=== PATIENT | male | born 1945 | race Caucasian/White ===

== ENCOUNTER 2018-03-18 18:58 | Inpatient (IN) | payer MEDICARE, OTHER ==
[~2018-03-18] VITALS: Ht 172.7 cm; Wt 70.0 kg
[2018-03-18] MEDS ORDERED: dexamethasone sod phosphate 10mg/ml inj IV STA (19:32)
[2018-03-18] MEDS ORDERED: normal saline 1000ML IV soln IVB ONE (19:35)
[2018-03-18] MEDS ORDERED: ipratropium/albuterol 3ml nebule NEB ONE (19:35)
[2018-03-18] MEDS ORDERED: ondansetron/PF 4mg/2ml inj IV ONE (19:35)
[2018-03-18 19:57] LABS: BASOPHILS % (AUTO) 0.3 % (0-1); EOSINOPHILS # (AUTO) 0.1 X10'3 (0-0.9); EOSINOPHILS % (AUTO) 0.8 % (0-6); HEMATOCRIT 43.7 % (42.0-52.0); HEMOGLOBIN 15.3 g/dl (14.0-17.9); LYMPHOCYTES % (AUTO) 13.8 % (21-51); MEAN CORPUSCULAR HEMOGLOBIN 32.1 PG (27.0-31.0); MEAN CORPUSCULAR VOLUME 91.9 FL (78-98); MEAN PLATELET VOLUME 7.9 FL (7.4-10.4); MONOCYTES # (AUTO) 0.2 X10'3 (0-0.9); MONOCYTES % (AUTO) 3.6 % (2-12); NEUTROPHILS # (AUTO) 5.6 X10'3 (1.8-7.7); NEUTROPHILS % (AUTO) 81.5 % (42-75); PLATELET COUNT 188 X10'3 (140-440); RED BLOOD COUNT 4.76 X10'6 (4.70-6.10); RED CELL DISTRIBUTION WIDTH 14.1 % (11.5-14.5); WHITE BLOOD COUNT 6.9 X10'3 (4.5-11.0)
[2018-03-18 20:06] LABS: ALANINE AMINOTRANSFERASE 32 U/L (12-78); ALBUMIN 3.8 G/DL (3.4-5.0); ALBUMIN/GLOBULIN RATIO 1.1 (1.1-1.5); ALKALINE PHOSPHATASE 90 IU/L (46-116); ANION GAP 10 (8-16); ASPARTATE AMINO TRANSFERASE 21 U/L (10-37); BILIRUBIN,TOTAL 0.6 MG/DL (0.1-1.0); BLOOD UREA NITROGEN 22 MG/DL (7-18); BUN/CREATININE RATIO 23.2 (5.4-32.0); CALCIUM 9.2 MG/DL (8.5-10.1); CHLORIDE 104 MMOL/L (99-107); CREATININE 0.95 MG/DL (0.60-1.10); GLUCOSE 190 MG/DL (70-104); POTASSIUM 4.1 MMOL/L (3.5-5.1); SODIUM 140 MMOL/L (135-145); TOTAL CARBON DIOXIDE 26.3 MMOL/L (24-32); TOTAL PROTEIN 7.4 G/DL (6.4-8.2); eGFR 78 ML/MIN
[2018-03-18 20:17] LABS: LIPASE 127 U/L (73-393)
[2018-03-18] MEDS: morphine 4 MG/ML inj SYRINge IV PRN (20:18)
[2018-03-18 21:12] LABS: CLARITY,URINE CLEAR (Clear); COLOR,URINE YELLOW (Yellow); GLUCOSE, URINE 100 mg/dl (Neg); KETONES,URINE >=80 mg/dl (Neg); LEUKOCYTE ESTERASE ,URINE NEGATIVE (Neg); NITRITES, URINE NEGATIVE (Neg); OCCULT BLOOD,URINE NEGATIVE (Neg); PROTEIN,URINE TRACE mg/dl (Neg); UROBILINOGEN,URINE 0.2 E.U/dL (0.2-1.0)
[2018-03-18 21:18] LABS: UA COLLECTION TYPE CLN CATCH MIDSTREAM
[2018-03-18 21:19] LABS: BACTERIA,URINE FEW /HPF (Neg); MUCUS STRANDS FEW /LPF (Neg); RBC,URINE 0-2 /HPF (0-2); SQUAMOUS EPITHELIAL CELL,UR FEW /LPF (FEW); WBC,URINE 0-4 /HPF (0-4)
[2018-03-18] MEDS ORDERED: pantoprazole 40 MG vial IV ONE (21:25)
[2018-03-18] MEDS ORDERED: albuterol 2.5 MG/3 ML nebule CONTNEB PRN (21:25)
[2018-03-18] MEDS ORDERED: LISI-600 PO (22:06)
[2018-03-18] MEDS ORDERED: IBUP-1986 PO (22:06)
[2018-03-18] MEDS ORDERED: DULO20CA17 PO (22:06)
[2018-03-18] MEDS ORDERED: BUPR300T86 PO (22:06)
[2018-03-18] MEDS ORDERED: ROSU10TA27 PO (22:06)
[2018-03-18] MEDS ORDERED: TRAZ-143 PO (22:06)
[2018-03-18] MEDS ORDERED: INSU100I31 SQ (22:06)
[2018-03-18] MEDS ORDERED: OMEP-50 PO (22:06)
[2018-03-18] MEDS ORDERED: acetaminophen 325mg tablet PO PRN (22:45)
[2018-03-18] MEDS ORDERED: mag hydrox/Alum hydrox/simeth 30ml oral suspension PO PRN (22:45)
[2018-03-18] MEDS ORDERED: ondansetron/PF 4mg/2ml inj IV PRN (22:45)
[2018-03-18] MEDS ORDERED: MESSAGE TO PHARMACY PO ONE (22:50)
[2018-03-18] MEDS ORDERED: dextrose ORAL solution 15 GM/59 ML bottle PO PRN ×2 (22:50)
[2018-03-18] MEDS ORDERED: insulin Lispro (HumaLOG) vial - multi-dose SQ SCH (22:50)
[2018-03-18] MEDS ORDERED: glucagon, human recombinant 1mg kit SUBCUT PRN (22:50)
[2018-03-18] MEDS ORDERED: dextrose 50%-water 50ml dispensing syringe IV PRN ×2 (22:50)
[2018-03-18 23:11] LABS: HEMOGLOBIN A1C 6.4 % (4.5-6.2)
[2018-03-19 00:30] VITALS: BP 110/66
[2018-03-19] MEDS: normal saline 1000ml 1,000 ML IV SCH ×3 (01:00→20:32)
[2018-03-19] MEDS: morphine 4 MG/ML inj SYRINge IV PRN ×2 (04:02→11:21)
[2018-03-19 08:00] VITALS: BP 104/61
[2018-03-19] MEDS ORDERED: ROSUVASTATIN CALCIUM 10 MG PO SCH (08:00)
[2018-03-19] MEDS: pantoprazole 40mg Tablet.DR PO SCH (08:04)
[2018-03-19] MEDS: atorvastatin 20mg tablet PO SCH (08:04)
[2018-03-19] MEDS: buPROPion SR 150mg tablet PO SCH ×2 (08:04→20:24)
[2018-03-19] MEDS: lisinopril 20mg tablet PO SCH (08:04)
[2018-03-19] MEDS: heparin, porcine 5000 units/ml vial SQ SCH ×2 (08:06→20:24)
[2018-03-19 08:16] LABS: BASOPHILS % (AUTO) 0.4 % (0-1); EOSINOPHILS % (AUTO) 0 % (0-6); HEMATOCRIT 38.3 % (42.0-52.0); HEMOGLOBIN 13.1 g/dl (14.0-17.9); LYMPHOCYTES # (AUTO) 0.9 X10'3 (1.1-4.8); LYMPHOCYTES % (AUTO) 15.3 % (21-51); MEAN CORPUSCULAR HEMOGLOBIN 31.9 PG (27.0-31.0); MEAN CORPUSCULAR HGB CONC 34.2 % (33.0-36.5); MEAN CORPUSCULAR VOLUME 93.5 FL (78-98); MEAN PLATELET VOLUME 8.8 FL (7.4-10.4); MONOCYTES # (AUTO) 0.3 X10'3 (0-0.9); MONOCYTES % (AUTO) 5.1 % (2-12); NEUTROPHILS # (AUTO) 4.6 X10'3 (1.8-7.7); NEUTROPHILS % (AUTO) 79.2 % (42-75); PLATELET COUNT 140 X10'3 (140-440); RED CELL DISTRIBUTION WIDTH 14.3 % (11.5-14.5); WHITE BLOOD COUNT 5.8 X10'3 (4.5-11.0)
[2018-03-19] MEDS: duloxetine 20mg capsule.DR PO SCH (08:27)
[2018-03-19 08:31] LABS: ALANINE AMINOTRANSFERASE 24 U/L (12-78); ALBUMIN 3.1 G/DL (3.4-5.0); ALKALINE PHOSPHATASE 74 IU/L (46-116); ANION GAP 10 (8-16); ASPARTATE AMINO TRANSFERASE 22 U/L (10-37); BILIRUBIN,TOTAL 0.4 MG/DL (0.1-1.0); BLOOD UREA NITROGEN 17 MG/DL (7-18); BUN/CREATININE RATIO 19.8 (5.4-32.0); CALCIUM 7.9 MG/DL (8.5-10.1); CHLORIDE 108 MMOL/L (99-107); CREATININE 0.86 MG/DL (0.60-1.10); GLUCOSE 186 MG/DL (70-104); POTASSIUM 4.1 MMOL/L (3.5-5.1); SODIUM 140 MMOL/L (135-145); TOTAL CARBON DIOXIDE 22.5 MMOL/L (24-32); TOTAL PROTEIN 6.2 G/DL (6.4-8.2); eGFR 88 ML/MIN
[2018-03-19 12:00] VITALS: BP 112/62
[2018-03-19] MEDS: predniSONE 20 mg tablet PO SCH (13:30)
[2018-03-19] MEDS: ipratropium/albuterol 3ml nebule NEB SCH ×3 (14:44→23:25)
[2018-03-19 15:18] LABS: C DIFF ANTIGEN NEGATIVE (NEGATIVE); C DIFF SPECIMEN=DIARRHEA? ACCEPTABLE; C DIFFICILE TOXINS A&B NEGATIVE (Neg)
[2018-03-19 15:22] LABS: CRYPTOSPORIDIUM AG NEGATIVE (Neg); GIARDIA LAMBLIA AG NEGATIVE (Neg)
[2018-03-19 18:00] VITALS: BP 118/81
[2018-03-19] MEDS ORDERED: morphine 4 MG/ML inj SYRINge IV PRN (18:55)
[2018-03-19] MEDS ORDERED: traZODone 50mg tablet PO SCH (21:00)
[2018-03-19] MEDS ORDERED: insulin glargine (Lantus) pen - multi-dose SQ SCH (21:00)
[2018-03-20] VITALS: BP 112/54
[2018-03-20] MEDS: ipratropium/albuterol 3ml nebule NEB SCH ×3 (03:16→11:11)
[2018-03-20 04:31] LABS: BASOPHILS % (AUTO) 0.1 % (0-1); EOSINOPHILS # (AUTO) 0.1 X10'3 (0-0.9); HEMATOCRIT 34.4 % (42.0-52.0); HEMOGLOBIN 11.7 g/dl (14.0-17.9); LYMPHOCYTES % (AUTO) 15.6 % (21-51); MEAN CORPUSCULAR HEMOGLOBIN 31.6 PG (27.0-31.0); MEAN CORPUSCULAR HGB CONC 33.9 % (33.0-36.5); MEAN CORPUSCULAR VOLUME 93.3 FL (78-98); MEAN PLATELET VOLUME 8.8 FL (7.4-10.4); MONOCYTES # (AUTO) 0.4 X10'3 (0-0.9); MONOCYTES % (AUTO) 6.3 % (2-12); PLATELET COUNT 132 X10'3 (140-440); RED BLOOD COUNT 3.69 X10'6 (4.70-6.10); RED CELL DISTRIBUTION WIDTH 14.2 % (11.5-14.5); WHITE BLOOD COUNT 6.5 X10'3 (4.5-11.0)
[2018-03-20] MEDS: normal saline 1000ml 1,000 ML IV SCH (04:42)
[2018-03-20 05:02] LABS: ALANINE AMINOTRANSFERASE 24 U/L (12-78); ALBUMIN 2.7 G/DL (3.4-5.0); ALKALINE PHOSPHATASE 67 IU/L (46-116); ANION GAP 11 (8-16); ASPARTATE AMINO TRANSFERASE 21 U/L (10-37); BILIRUBIN,TOTAL 0.3 MG/DL (0.1-1.0); BLOOD UREA NITROGEN 15 MG/DL (7-18); CALCIUM 7.7 MG/DL (8.5-10.1); CHLORIDE 109 MMOL/L (99-107); CREATININE 1.15 MG/DL (0.60-1.10); GLUCOSE 173 MG/DL (70-104); SODIUM 141 MMOL/L (135-145); TOTAL CARBON DIOXIDE 20.7 MMOL/L (24-32); TOTAL PROTEIN 5.5 G/DL (6.4-8.2); eGFR 63 ML/MIN
[2018-03-20 07:32] VITALS: BP 98/58
[2018-03-20] MEDS: heparin, porcine 5000 units/ml vial SQ SCH (07:37)
[2018-03-20] MEDS: predniSONE 20 mg tablet PO SCH (07:39)
[2018-03-20] MEDS: duloxetine 20mg capsule.DR PO SCH (07:39)
[2018-03-20] MEDS: pantoprazole 40mg Tablet.DR PO SCH (07:39)
[2018-03-20] MEDS: buPROPion SR 150mg tablet PO SCH (07:39)
[2018-03-20] MEDS: atorvastatin 20mg tablet PO SCH (07:39)
[2018-03-20] MEDS: lisinopril 20mg tablet PO SCH (07:41)
[2018-03-20 11:18] VITALS: BP 151/81
[2018-03-20] MEDS ORDERED: DOXY100C2 PO (11:44)
[2018-03-20] MEDS ORDERED: ALBU8HFA PO (11:44)
[2018-03-20] MEDS ORDERED: PRED10TA23 PO (11:44)
== END 2018-03-20 13:02 | disposition home or self-care (01) | DRG 192 ==
LOC: ER 18:59 → ED HOLD 22:42 → SUR 3N 23:59
PROVIDERS: ADMIT Internal Medicine; ATTEND Family Medicine
DX: J44.1 Chronic obstructive pulmonary disease with (acute) exacerbation (principal); N28.1 Cyst of kidney, acquired; E11.65 Type 2 diabetes mellitus with hyperglycemia; E78.00 Pure hypercholesterolemia, unspecified; I10 Essential (primary) hypertension; E78.5 Hyperlipidemia, unspecified; K52.9 Noninfective gastroenteritis and colitis, unspecified; K57.30 Diverticulosis of large intestine without perforation or abscess without bleeding; Z90.49 Acquired absence of other specified parts of digestive tract; Z79.4 Long term (current) use of insulin; Z79.899 Other long term (current) drug therapy; Z87.891 Personal history of nicotine dependence
CPT/HCPCS: 36415; 71045; 74176; 80053; 81001; 82948; 83036; 83605; 83690; 83880; 84484; 85025; 87045; 87046; 87070; 87324; 87328; 87329; 87336; 87449; 89055; 93005; 94640; 94760; 96361; 96374; 96375; 99285; C9113; J1100; J1644; J1815; J2270; J2405; J7030; J7512

== ENCOUNTER 2018-10-16 08:22 | Inpatient (IN) | payer MEDICARE, MEDICAID ==
[2018-10-16] VITALS (19 sets, daily range): BP systolic 113–154; BP diastolic 49–92
[~2018-10-16] VITALS: Ht 172.7 cm; Wt 69.9 kg
[~2018-10-16 08:22] MED LIST: BUPR300T86 PO; DULO20CA17 PO; INSU100I31 SQ; LISI-600 PO; OMEP-50 PO; ROSU10TA27 PO; albuterol 2.5 MG/3 ML nebule NEB ONE; ceFAZolin 1GM/D5W- ADD-VANTAGE 50 ML IV ONE; famotidine 20mg tablet PO ONE; ringers solution, lacted 1,000 ML IV SCH
[2018-10-16] MEDS ORDERED: LIDOcaine 1% (10mg/ml) 2ml vial ONE (10:01)
[2018-10-16 10:16] LABS: BASOPHILS % (AUTO) 0.6 % (0-1); EOSINOPHILS # (AUTO) 0.1 X10'3 (0-0.9); EOSINOPHILS % (AUTO) 1.3 % (0-6); MEAN CORPUSCULAR HGB CONC 33.8 % (33.0-36.5); MEAN CORPUSCULAR VOLUME 94.7 FL (78-98); MONOCYTES # (AUTO) 0.4 X10'3 (0-0.9); NEUTROPHILS # (AUTO) 3.9 X10'3 (1.8-7.7); NEUTROPHILS % (AUTO) 72.1 % (42-75); PRE OP HEMATOCRIT 42.4 % (42.0-52.0); PRE OP HEMOGLOBIN 14.3 g/dL (14.0-17.9); PRE OP PLATELET COUNT 177 X10'3 (140-440); RED BLOOD COUNT 4.47 X10'6 (4.70-6.10); RED CELL DISTRIBUTION WIDTH 13.7 % (11.5-14.5)
[2018-10-16 10:40] LABS: HEMOGLOBIN A1C 6.6 % (4.5-6.2)
[2018-10-16 10:55] LABS: ALBUMIN 3.4 G/DL (3.4-5.0); ALKALINE PHOSPHATASE 84 IU/L (46-116); BLOOD UREA NITROGEN 23 MG/DL (7-18); BUN/CREATININE RATIO 24.2 (5.4-32.0); CALCIUM 8.6 MG/DL (8.5-10.1); CHLORIDE 104 MMOL/L (99-107); CREATININE 0.95 MG/DL (0.60-1.10); PRE OP ALT 18 U/L (30-65); PRE OP ANION GAP 7 (8-16); PRE OP AST 22 U/L (10-37); PRE OP BILIRUB, TOTAL 0.3 MG/DL (0.0-1.0); PRE OP GLUCOSE 133 MG/DL (70-104); PRE OP POTASSIUM 4.1 MMOL/L (3.4-5.1); PRE OP SODIUM 138 MMOL/L (135-145); TOTAL CARBON DIOXIDE 26.7 MMOL/L (24-32); TOTAL PROTEIN 6.9 G/DL (6.4-8.2); eGFR 78 ML/MIN
[2018-10-16] MEDS ORDERED: MIDAZolam 5mg/5ml vial ONE (10:58)
[2018-10-16] MEDS ORDERED: LIDOcaine 2% (20mg/ml) 5ml vial ONE (10:58)
[2018-10-16] MEDS ORDERED: rocuronium 10mg/ml inj IV ONE (10:58)
[2018-10-16] MEDS ORDERED: fentaNYL /PF 50mcg/ml 5ml ampule ONE (10:58)
[2018-10-16] MEDS ORDERED: propofol inj 20 ML IV ONE (10:58)
[2018-10-16] MEDS ORDERED: epiNEPHrine 1 mg/ml inj ONE (11:02)
[2018-10-16] MEDS ORDERED: BUPIVAcaine/PF 2.5mg/ml (0.25%) 10ml vial ONE ×2 (11:02→11:38)
[2018-10-16] MEDS ORDERED: ondansetron/PF 4mg/2ml inj IV PRN ×2 (11:05→14:05)
[2018-10-16] MEDS ORDERED: morphine 4 MG/ML inj SYRINge IV PRN ×2 (11:05)
[2018-10-16] MEDS ORDERED: ringers solution, lacted 1,000 ML IV SCH (11:05)
[2018-10-16] MEDS ORDERED: fentaNYL/PF 50MCG/1 ML 2ML syringe IV PRN ×2 (11:05)
[2018-10-16] MEDS ORDERED: labetalol 20mg/4ml (5mg/ml) syringe IV PRN (11:05)
[2018-10-16] MEDS ORDERED: hydrALAZINE 20mg/ml inj. IV PRN (11:05)
[2018-10-16] MEDS ORDERED: albumin (Human) 5% 250ml 250 ML IV ONE (11:22)
[2018-10-16] MEDS ORDERED: ondansetron/PF 4mg/2ml inj ONE (12:04)
[2018-10-16] MEDS ORDERED: labetalol 5mg/ml 20ml inj. IV ONE (12:04)
[2018-10-16] MEDS ORDERED: neostigmine methylsulfate 1 MG/ML 10ml vial ONE (14:00)
[2018-10-16] MEDS ORDERED: naloxone 0.4 mg/ml inj IV PRN (14:05)
--- NOTE | 2018-10-16 14:17 | NUR ---
Received from OR via , accompanied by Anesthesiologist DR LOZA and report given by Anesthesiolgist. AWAKENS TO VOICE. VITALS STABLE. DRESSINGS DI. VERNA PAIN. BOLAND WITH CLEAR URINE.
[2018-10-16] MEDS: HYDROmorphone/NS 1 mg/ml CADD 50 ML IV SCH ×5 (15:08→23:00)
--- NOTE | 2018-10-16 15:14 | NUR ---
Patient in room PAS IN 900. I have received report from ZOË Beltran and had the opportunity to ask questions and assume patient care.
--- NOTE | 2018-10-16 15:17 | NUR ---
Report called to receiving nurse. Transferred via BED Belongings . Special Issues communicated to receiving nurse. AWAKE AND ORIENTED. VITALS STABLE. DRESSING DI. STATES PAIN IMPROVING. TO SURGICAL RM 349A AT THIS TIME.
--- NOTE | 2018-10-16 15:40 | NUR ---
Patient in room PERFECTO 349. I have received report from kaylene CAMP and had the opportunity to ask questions and assume patient care.
[2018-10-16] MEDS ORDERED: ceFAZolin inj. 1,000 MG in dextrose 5%-water 50ml 50 ML IV SCH (16:00)
--- NOTE | 2018-10-16 16:00 | NUR ---
Patient was in bed made comfortable, patient had control of pain, IV site intact and working to the right forarm. Lap and surgical sites intact and clean. Patient alert and oriented at this time, patient heart sounds [id number], and patients lung sound clear. Patient notified that sips and chips okay at this time.
[2018-10-16] MEDS: ceFAZolin 1GM/D5W- ADD-VANTAGE 50 ML IV SCH (16:26)
[2018-10-16] MEDS: potassium cl 20mEq in 1/2 NS 1,000 ML IV SCH (16:26)
--- NOTE | 2018-10-16 19:04 | NUR ---
Problems reprioritized. Patient report given, questions answered & plan of care reviewed with Meagan CAMP. Patient stated his pain is under more control at this time.
[2018-10-16] MEDS ORDERED: diphenhydrAMINE 25mg capsule PO ONE (21:45)
--- NOTE | 2018-10-16 22:05 | NUR ---
pt stated that he was feeling itchy all over his body, and starting to feel nauseous and light headed. I called Dr. San got a one time order of 25mg PO of Benadryl, I also gave the pt Zofran. pt stated he also felt light headed and shaky, I checked his BS it was 183, Vital Sign B/P: 121/57 and then 116/58, T: 97.5 axillary, 96% on 2L, HR: 59
[2018-10-17] VITALS: BP 127/64
[2018-10-17] MEDS: ceFAZolin 1GM/D5W- ADD-VANTAGE 50 ML IV SCH ×2 (00:21→07:52)
[2018-10-17] MEDS: HYDROmorphone/NS 1 mg/ml CADD 50 ML IV SCH ×5 (01:00→09:00)
[2018-10-17] MEDS: potassium cl 20mEq in 1/2 NS 1,000 ML IV SCH ×4 (02:01→18:31)
[2018-10-17 04:35] VITALS: BP 132/56
--- NOTE | 2018-10-17 06:16 | NUR ---
Gave report to Marlon CAMP pt is awake and alert on RA, in no apparent distress, call light and items of freq use within reach.
--- NOTE | 2018-10-17 06:19 | NUR ---
Patient in room PERFECTO 349. I have received report from Marce CAMP and had the opportunity to ask questions and assume patient care.
[2018-10-17 07:00] VITALS: BP 122/63
[2018-10-17 07:16] LABS: BASOPHILS % (AUTO) 0.2 % (0-1); EOSINOPHILS # (AUTO) 0.2 X10'3 (0-0.9); EOSINOPHILS % (AUTO) 1.5 % (0-6); HEMATOCRIT 40.6 % (42.0-52.0); HEMOGLOBIN 13.6 g/dl (14.0-17.9); LYMPHOCYTES # (AUTO) 0.9 X10'3 (1.1-4.8); LYMPHOCYTES % (AUTO) 8.6 % (21-51); MEAN CORPUSCULAR HEMOGLOBIN 32.4 PG (27.0-31.0); MEAN CORPUSCULAR HGB CONC 33.5 % (33.0-36.5); MEAN CORPUSCULAR VOLUME 96.7 FL (78-98); MEAN PLATELET VOLUME 9.9 FL (7.4-10.4); MONOCYTES % (AUTO) 9.9 % (2-12); NEUTROPHILS # (AUTO) 8.3 X10'3 (1.8-7.7); NEUTROPHILS % (AUTO) 79.8 % (42-75); PLATELET COUNT 131 X10'3 (140-440); RED CELL DISTRIBUTION WIDTH 13.8 % (11.5-14.5); WHITE BLOOD COUNT 10.4 X10'3 (4.5-11.0)
[2018-10-17 07:50] LABS: ALBUMIN 3.2 G/DL (3.4-5.0); ANION GAP 11 (8-16); BLOOD UREA NITROGEN 20 MG/DL (7-18); BUN/CREATININE RATIO 12.3 (5.4-32.0); CALCIUM 8.1 MG/DL (8.5-10.1); CHLORIDE 103 MMOL/L (99-107); CREATININE 1.63 MG/DL (0.60-1.10); GLUCOSE 130 MG/DL (70-104); POTASSIUM 4.8 MMOL/L (3.5-5.1); SODIUM 140 MMOL/L (135-145); TOTAL CARBON DIOXIDE 25.6 MMOL/L (24-32); eGFR 42 ML/MIN
[2018-10-17] MEDS: docusate sod 250mg capsule PO SCH (07:51)
--- NOTE | 2018-10-17 09:17 | NUR ---
Patient reported to me " I think this medicine (pointing to Maria Del Carmen KARIMI) makes me itchy because I got itchy then when I pushed the button then it will go away!" Patient stated that his pain level was only about 2/10. Relayed this message to Dr. San. Dr. San said Dr. Marquez should make rounds today
--- NOTE | 2018-10-17 09:41 | NUR ---
Dr. Marquez at the nurse's station, I told him about the patient stating he has been itching every time he gets Dilaudid. Dr. Marquez said he will see the patient
[2018-10-17 11:00] VITALS: BP 114/57
[2018-10-17] MEDS: morphine/NS 5 mg/ml CADD 50 ML IV SCH ×8 (11:00→23:00)
[2018-10-17] MEDS: CADD PCA waste documentation MC PRN (11:22)
--- NOTE | 2018-10-17 12:30 | NUR ---
Patient's blood sugar was 78 mg/dl, asymptomatic. Patient was given 2 apple juice with 2 packs of sugar. Patient also requested for chicken broth.
--- NOTE | 2018-10-17 13:07 | NUR ---
Patient walked 2 laps using front wheel walker, tolerated well.
--- NOTE | 2018-10-17 13:14 | NUR ---
Spoke to Dr. San (on-call for Dr. Marquez) regarding blood sugar of 78 mg/dl. He ordered to start hypoglycemia protocol
[2018-10-17] MEDS ORDERED: glucagon, human recombinant 1mg kit SUBCUT PRN (13:20)
[2018-10-17] MEDS ORDERED: dextrose ORAL solution 15 GM/59 ML bottle PO PRN ×2 (13:20)
[2018-10-17] MEDS ORDERED: dextrose 50%-water 50ml dispensing syringe IV PRN ×2 (13:20)
--- NOTE | 2018-10-17 18:32 | NUR ---
Problems reprioritized. Patient report given, questions answered & plan of care reviewed with Kelli CAMP.
[2018-10-17 19:00] VITALS: BP 160/78
[2018-10-17] MEDS: buPROPion SR 150mg tablet PO SCH (20:55)
[2018-10-17] MEDS ORDERED: insulin glargine (Lantus) pen - multi-dose SQ SCH (21:00)
[2018-10-18] VITALS: BP 141/77
[2018-10-18] MEDS: morphine/NS 5 mg/ml CADD 50 ML IV SCH ×6 (01:00→11:00)
[2018-10-18] MEDS: potassium cl 20mEq in 1/2 NS 1,000 ML IV SCH (02:14)
--- NOTE | 2018-10-18 05:45 | NUR ---
F/C removed as per SCIP order for post op day #2 at this time. Addendum: 10/18/18 at 0559 by Kelli Dillon RN Amended: Links added.
--- NOTE | 2018-10-18 06:40 | NUR ---
Patient in room PERFECTO 349. I have received report from ZOË Pereira and had the opportunity to ask questions and assume patient care.
--- NOTE | 2018-10-18 06:43 | NUR ---
Problems reprioritized. Patient report given, questions answered & plan of care reviewed with Monika CAMP. Addendum: 10/18/18 at 0644 by Kelli Dillon RN Amended: Links added.
[2018-10-18] MEDS ORDERED: pantoprazole 40mg Tablet.DR PO SCH (07:30)
[2018-10-18] MEDS: docusate sod 250mg capsule PO SCH (07:38)
[2018-10-18] MEDS: buPROPion SR 150mg tablet PO SCH (07:41)
[2018-10-18 07:45] VITALS: BP 115/52
[2018-10-18] MEDS ORDERED: atorvastatin 20mg tablet PO SCH (08:00)
[2018-10-18] MEDS ORDERED: lisinopril 20mg tablet PO SCH (08:00)
[2018-10-18] MEDS ORDERED: duloxetine 20mg capsule.DR PO SCH (08:00)
[2018-10-18] MEDS ORDERED: HYDR-4383 PO (10:13)
[2018-10-18] MEDS: CADD PCA waste documentation MC PRN (11:22)
--- NOTE | 2018-10-18 11:52 | NUR ---
Patient discharged home via neighbor. Patient removed own IV at 1115. Bleeding was controlled and cannula was intact. Patient took all belongings home with him. Dr. Jackson Prescribed [place] for the patient to take home. Patient stated that he only ever uses Tylenol for pain management at home and won't be needing the prescription for [place]. Patient alert, oriented and in no apparent distress at this time. Patient was in a hurry and opted to walk off of unit instead of allowing a staff member to take him down via wheelchair.
== END 2018-10-18 11:55 | disposition home or self-care (01) | DRG 658 ==
LOC: PAS IN 08:22 → EDSTATUS 11:15 → SUR 3N 15:43
PROVIDERS: ADMIT Urology; ATTEND Urology
PROC: 0TT04ZZ Resection of Right Kidney, Percutaneous Endoscopic Approach (ICD-10-PCS; principal; 2018-10-16 11:04)
DX: C64.1 Malignant neoplasm of right kidney, except renal pelvis (principal); J44.9 Chronic obstructive pulmonary disease, unspecified; G43.909 Migraine, unspecified, not intractable, without status migrainosus; F32.9 Major depressive disorder, single episode, unspecified; K21.9 Gastro-esophageal reflux disease without esophagitis; I10 Essential (primary) hypertension; K66.0 Peritoneal adhesions (postprocedural) (postinfection); E11.9 Type 2 diabetes mellitus without complications; Z90.49 Acquired absence of other specified parts of digestive tract; Z79.899 Other long term (current) drug therapy; Z86.59 Personal history of other mental and behavioral disorders
CPT/HCPCS: 36415; 71045; 80048; 80053; 82948; 83036; 85025; 85610; 85730; 86885; 86900; 86901; 86920; 87070; 88307; 93005; A7000; C1758; G0378; J0171; J0690; J1170; J1815; J2001; J2250; J2270; J2405; J2704; J2710; J3010; J3490; J7030; J7060; J7120; P9045; Q0163